=== PATIENT | male | born 1950 | race Caucasian/White ===

== ENCOUNTER 2018-03-07 07:00 | Emergency (ER) | payer OTHER ==
[~2018-03-07] VITALS: Ht 170.2 cm; Wt 98.9 kg
--- NOTE | 2018-03-07 07:00 | NUR ---
PT ROLF BLS. TAKEN TO BED 5
[2018-03-07 07:04] VITALS: BP 171/94
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
--- NOTE | 2018-03-07 07:18 | NUR ---
DR CROWDER EVALUATING AT BEDSIDE
[2018-03-07] MEDS ORDERED: KETOROLAC 60 MG/2 ML VIAL IM ONE (07:30)
--- NOTE | 2018-03-07 07:42 | NUR ---
PT TAKEN TO X RAY VIA W/C ACCOMPANIED BY [employer].
--- NOTE | 2018-03-07 07:52 | NUR ---
PT BACK FROM X-RAY. MONITORS ATTACHED. PT POSITIONED FOR COMFORT. LIGHTS DIMMED. CALL LIGHT WITH IN REACH. WILL CONTINUE TO MONITOR.
--- NOTE | 2018-03-07 07:52 | NUR ---
PT RETURNED FROM XRAY
--- NOTE | 2018-03-07 08:45 | NUR ---
Patient appears to be SLEEPING comfortably in bed. BP 141/82,P90/MIN, Respirations even and unlabored.WILL CONTINUE TO MONITOR.
[2018-03-07 09:00] VITALS: BP 141/82
--- NOTE | 2018-03-07 09:00 | NUR ---
Patient discharged with v/s stable. Written and verbal after care instructions given and explained. Patient alert, oriented and verbalized understanding of instructions. Ambulatory with steady gait. All questions addressed prior to discharge. ID band removed. Patient advised to follow up with PMD. Rx of VOLTAREN XR 100MG given. Patient educated on indication of medication including possible reaction and side effects. Opportunity to ask questions provided and answered.
--- NOTE | 2018-03-08 15:24 | NUR ---
phone call made to reach patient to advise pt to return to have a repeat x-ray per Dr. Jordan request. No voicemail available to leave message. Will follow up and advise charge nurse Sammy.
== END 2018-03-07 09:00 | disposition home or self-care (01) ==
LOC: MED 07:00
DX: S29.012A Strain of muscle and tendon of back wall of thorax, initial encounter (principal); S16.1XXA Strain of muscle, fascia and tendon at neck level, initial encounter; V43.52XA Car driver injured in collision with other type car in traffic accident, initial encounter; Y93.89 Activity, other specified; Y92.488 Other paved roadways as the place of occurrence of the external cause; Y99.8 Other external cause status
CPT/HCPCS: 71046; 72040; 72100; 96372; 99284; J1885